=== PATIENT | male | born 1955 | race Caucasian/White ===

== ENCOUNTER 2018-06-17 08:16 | Day surgery (SDC) | payer OTHER ==
--- NOTE | 2018-06-08 03:58 | HP ---
PREOPERATIVE HISTORY AND PHYSICAL: DATE OF ADMISSION/SURGERY: 06/17/18 ATTENDING SURGEON: Dr. Elana Sears.* (DICTATED BY SEA MILLER) PROCEDURE: Left knee arthroscopy, partial meniscectomy. CHIEF COMPLAINT: Left knee pain. HISTORY OF PRESENT ILLNESS: Jeferson is a 63-year-old male who presents to the clinic for left knee pain due to osteoarthritis. He states that he continues to have pain in his left knee. He has been working on physical therapy exercises and has not noticed much of an improvement. He did get corticosteroid injection, which only helped him for about 1 to 2 months. In the past couple of months, his pain has been worsening. He is taking Advil 200 mg. He went to [place] for a second opinion and they told him to get a knee scope or a total joint. He is interested in a knee scope to clean out his knee. He denies numbness, tingling, fever, chills, chest pain, shortness of breath, and is doing well otherwise. PAST MEDICAL HISTORY: Hypertension, high cholesterol in the past, history of opioid addiction, and depression. PAST SURGICAL HISTORY: Cardiac cath. Denies complications with anesthesia. MEDICATIONS: 1. Ibuprofen 200 mg 2 to 3 tabs every 6 hours as needed for pain. 2. Subutex. ALLERGIES: MORPHINE. FAMILY HISTORY: Denies pertinent family history. SOCIAL HISTORY: He lives with his spouse. He works as a abisai. He is a former smoker, quit in 2008. He reports occasional alcohol consumption. He exercises occasionally. REVIEW OF SYSTEMS: A 14-point review of systems was reviewed with the patient. Positive for current complaint, otherwise negative. Denies fever, chills, chest pain, shortness of breath, history of bleeding disorder, history of DVT or PE. Denies history of MRSA. PHYSICAL EXAMINATION GENERAL: A 63-year-old well-developed, well-nourished male, in no acute distress. Alert and oriented x3. Appropriate mood and affect. Appropriate balance and coordination of the lower extremities. VITAL SIGNS: Height 73, weight 276, pulse 86, blood pressure 140/80, respiratory rate 20, BMI 36.4. HEENT: Normocephalic, atraumatic. PERRLA. Throat clear. NECK: Supple. PULMONARY: Lungs are clear to auscultation bilaterally. No wheezing, rhonchi, or rales. CARDIO: Regular rate and rhythm. S1, S2. No murmurs, gallops, or rubs. No edema. ABDOMEN: Positive bowel sounds. Soft, nontender. NEURO: Alert and oriented x3. Cranial nerves grossly intact. Sensation intact to light touch. MUSCULOSKELETAL: Left lower extremity: Skin is intact. No warmth or erythema. Range of motion is 0 to 120. Mild effusion. Tenderness to palpation of the medial joint line and the patellar facets. Calf soft, nontender. +5/5 strength to ankle dorsiflexion and plantarflexion. +2 PT pulse. Sensation intact to light touch distally. Stable to varus and valgus stress. DIAGNOSTIC STUDIES: MRI revealed arthritis of the medial and patellofemoral compartments and PCL insufficiency. ASSESSMENT: Left knee osteoarthritis. PLAN: Jeferson is a 63-year-old male who presents to the clinic for followup of left knee pain due to osteoarthritis. He has failed conservative measures to include physical therapy, anti-inflammatories and a steroid injection, and has therefore agreed to undergo a left knee arthroscopy with partial meniscectomy with Dr. Sears on 06/17/18. It was explained to the patient that he may have continued arthritis pain after the surgery; however, he has agreed to undergo the surgery. Risks of surgery to include injury to blood vessels, nerves, surrounding structures; bleeding; infection; stiffness; persistent pain ; risks of anesthesia; and risks of DVT or PE were discussed with the patient. He has agreed to undergo the procedure. He will follow up 10 to 14 days postop for followup and suture removal. 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 SEA MILLER [id number]/[facility] #: [id number] MTDD
[~2018-06-17 08:16] MED LIST: Buffered Lidocaine 0.9% SYRIN* 5 ML/SYR SYRINGE INTRADERM ONE; Famotidine IV* 10 MG/ML 2 ML (20 mg) IV ONE
[2018-06-17] MEDS ORDERED: ceFAZolin 1 GM ADVAN(*) 1 GM ADDV.VIAL IVPB ONE (08:17)
[2018-06-17] MEDS ORDERED: ceFAZolin 2 GM PREMIX in ORs 2 GM/50 ML BAG IVPB ONE (08:17)
[2018-06-17] MEDS ORDERED: Famotidine IV* 10 MG/ML 2 ML (20 mg) ONE (08:17)
[2018-06-17] MEDS ORDERED: Midazolam* 1 MG/ML 5 ML VIAL (5 MG) ONE (08:26)
[2018-06-17] MEDS ORDERED: Lidocaine 1% MPF wEPI 200,000* 30 ML SDV ONE (11:02)
[2018-06-17] MEDS ORDERED: Bupivacaine 0.25% SDV PF* 10 ML VIAL INJ ONE (11:02)
[2018-06-17] MEDS ORDERED: Ketorolac INJ* 30 MG/ML 1 ML VIAL ONE (11:13)
[2018-06-17] MEDS ORDERED: Propofol* 10 MG/ML 20 ML BTL IV PUSH ONE (11:13)
[2018-06-17] MEDS ORDERED: DiMENhydriNATE IV* 50 MG/ML VIAL ONE (11:13)
[2018-06-17] MEDS ORDERED: Lidocaine 2% PF * 5 ML VIAL ONE (11:13)
[2018-06-17] MEDS ORDERED: Dexamethasone IV* 4 MG/ML 1 ML (4 MG) ONE (11:13)
[2018-06-17] MEDS ORDERED: Ondansetron INJ* 2 MG/ML VIAL ONE (11:13)
[2018-06-17] MEDS ORDERED: DiMENhydriNATE IV* 50 MG/ML VIAL IV PUSH PRN (11:34)
[2018-06-17] MEDS ORDERED: Acetaminophen TAB* 325 MG PO PRN (11:34)
[2018-06-17] MEDS ORDERED: Acetaminophen TAB* 325 MG ONE (12:58)
[2018-06-17 14:20] VITALS: BP 118/79
--- NOTE | 2018-06-17 21:44 | OP ---
CC: PCP, Rey Liu MD * DATE OF OPERATION: 06/17/18 - [facility] DATE OF : 55 ATTENDING SURGEON: Elana Sears MD FRIT MIXER AND BURNER: SEA Powell. An laundry assistant was needed due to the patient' s size and body habitus. ANESTHESIOLOGIST: Dr. Ann PRE-OP DIAGNOSIS: Left knee arthritis with medial meniscus tear. POST-OP DIAGNOSIS: Left knee osteoarthritis with medial and lateral meniscus tear, chondroplasty of the patellofemoral and medial compartments, and synovectomy of the anteromedial and lateral joints. COMPLICATIONS: None. ESTIMATED BLOOD LOSS: Minimal. INDICATIONS: Jeferson Mcadams is a 63-year-old male who has persistent worsening symptoms of his knees. He had responded to injection. He has tried physical therapy and exercises and has continued to struggle. We did talk about how he does have some arthritis changes that may be better rectified with a total joint, but he does have some catching and locking symptoms and synovitic symptoms and wanted to see if arthroplasty would help. Risk and benefits were discussed at length included, but not limited to bleeding, infection, damage to nerves, vessels, surrounding structures, wound nonhealing, persistent pain, need for surgery, scarring stiffness, incomplete release of symptoms, risks of anesthesia, risk of DVT. DESCRIPTION OF PROCEDURE: The patient was greeted in the preoperative area by the attending surgeon. The correct extremity was marked, consent was confirmed. The patient was brought back to the operating suite where he was placed in a supine position on the operating room table and underwent general anesthesia, LMA intubation after which an unsterile tourniquet was placed high in the proximal thigh, the lateral post was positioned. Left leg was then prepped and draped in the usual sterile fashion beginning with chlorhexidine soap, scrub, and alcohol wipe, and a final prep with ChloraPrep. After appropriate surgical pause indicating site, side, procedure, and administration of antibiotics; the knee was intra-articularly injected with 1% lidocaine with epi. Anterolateral portal was made sharply with an 11 blade. Scope was introduced into the joint. Joint was examined. There was abundant synovitis apparent. Anteromedial portal was then made in an outside-end fashion with an 18- gauge and localized. The synovitis was then debrided back using the shaver as well as the electrocautery device. The ACL and PCL were intact. Medial compartment was examined, there was areas of grade 3 and 4 changes to the meniscus. There is an unstable meniscus tear, which was debrided back using the shaver. The advanced stage of the medial femoral compartment were identified. The knee was then placed in a [id number] position. Lateral meniscus was identified and there was clear bucket-handle type tear. This was debrided back using the sabine and the biters. The lateral femoral condyle had grade 0 to 1 changes. The lateral plateau had grade 2 changes with unstable flaps that were debrided back, chondroplasty was done. The knee was then placed in extension. The patient is unable to fully extend and rested at about 8 degrees of flexion. The synovectomy was done using a shaver and the electrocautery device, which extended all the way to the gutters medially and laterally. Once this was done and hemostasis was obtained , attention was directed to the patellofemoral joint. There were grade 2 and 3 changes at the patellofemoral joint. This was debrided back using the shaver. Knee was thoroughly lavaged and all loose debris was removed. Final images were obtained. The portals were closed with 3-0 nylon, sterile dressings were applied. He was awoken from anesthesia. The knee was intra-articularly injected with 0.25% bupivacaine. He was awoken from anesthesia and transferred to PACU in stable condition. POSTOPERATIVE PLAN: He will be weightbearing as tolerated. Crutches for 3 to 5 days. He will be discharged on pain medications including Toradol because he is on chronic pain medications. I will see the patient back in 10 to 14 days. [id number]/[facility] #: [id number] [facility]
== END 2018-06-17 14:39 | disposition home or self-care (01) ==
LOC: OR 08:16
PROVIDERS: ATTEND Orthopaedic Surgery
DX: M17.12 Unilateral primary osteoarthritis, left knee (principal); M23.201 Derangement of unspecified lateral meniscus due to old tear or injury, left knee; M23.204 Derangement of unspecified medial meniscus due to old tear or injury, left knee; I10 Essential (primary) hypertension; F11.21 Opioid dependence, in remission; Z85.828 Personal history of other malignant neoplasm of skin; Z87.891 Personal history of nicotine dependence; E66.01 Morbid (severe) obesity due to excess calories
CPT/HCPCS: A9270-GY; J0690; J1100; J1240; J1885; J2001; J2250; J2405; J2704; J3490

== ENCOUNTER → 2018-11-27 05:54 | Day surgery (SDC) | payer OTHER ==
[~2018-11-27 05:54] MED LIST changes: +Acetaminophen TAB* 325 MG PO PRN; -Buffered Lidocaine 0.9% SYRIN* 5 ML/SYR SYRINGE INTRADERM ONE; +Buffered Lidocaine 1% SYRIN* 1 ML/SYRINGE INTRADERM ONE; +Dexamethasone IV* 4 MG/ML 1 ML (4 MG) IV SLOW PU ONE; +Dexamethasone IV* 4 MG/ML 1 ML (4 MG) ONE; -Famotidine IV* 10 MG/ML 2 ML (20 mg) IV ONE; +HYDROcodone/ACETAMIN 5-325 MG* 1 TAB PO PRN; +Lactated Ringers 1000 ML Bag* 1,000 ML IV SCH; +Lidocaine 2% PF * 5 ML VIAL ONE; +Midazolam* 1 MG/ML 2 ML VIAL (2 MG) ONE; +Naloxone* 0.4 MG/ML 1 ML VIAL IV PRN; +Ondansetron INJ* 2 MG/ML VIAL IV PRN; +Propofol* 10 MG/ML 20 ML BTL ONE; +fentaNYL* 50 MCG/ML 2 ML VIAL (100 MCG VIAL) IV PRN
[2018-11-27 10:03] VITALS: BP 140/91
--- NOTE | 2018-11-27 11:21 | PRO ---
CC: Rey Liu MD * EGD AND COLONOSCOPY REPORT: DATE OF PROCEDURE: 11/27/18 - ENDO PRIMARY CARE PHYSICIAN: Rey Liu MD INDICATIONS FOR PROCEDURE: Change in bowel habits, GERD. PROCEDURE PERFORMED: Complete esophagogastroduodenoscopy and complete colonoscopy to the cecum with biopsies. MEDICATIONS GIVEN: Please see anesthesia record. DESCRIPTION OF PROCEDURE: After the EGD and colonoscopy procedure including the risks, benefits, and alternatives with the risks not limited to perforation , surgery, missed lesions, and/or were explained to the patient, written and informed consent was obtained. IV sedation medication was given by the anesthesia service and a bite block was placed between the teeth. The adult Olympus gastroscope was inserted into the patient's oropharynx into the tubular esophagus. The tubular esophagus had mild GE junction irregularity, less than 1 cm, it was biopsied for reflux disease. The scope was advanced through a patent lower esophageal sphincter into the stomach. The stomach antrum had mild antral gastritis, this was biopsied for CLOtesting. On retroflexion, the views were relatively normal. The scope was advanced through a widely patent pylorus into the duodenal bulb, C-loop, and distal duodenum. Biopsies were taken to rule out villous blunting, but overall the appearance of the duodenum appeared normal. The GE junction was at 40 cm. The scope was removed from the patient, he tolerated the procedure well. He was given additional IV sedation by the anesthesia service. A rectal exam was then performed. The rectal exam was unremarkable. The adult Olympus colonoscope was then inserted into the patient's rectum and advanced very carefully throughout the entirety of the colon into the cecal base. The cecal base was carefully inspected and normal in appearance. The terminal ileal valve was identified and normal in appearance. The preparation was good. Over the next 10 minutes, the scope was carefully withdrawn inspecting the mucosa. No polyps or lesions were identified. The colon was quite redundant and cavernous, but otherwise normal in appearance. I returned to the rectum. Direct views were normal. On retroflexion, grade 1 internal hemorrhoids were appreciated. Biopsies were taken for microscopic colitis throughout given his change in bowel habits. The scope was then removed from the patient. He tolerated the procedure well. He returned to the recovery room in stable condition. IMPRESSION: 1. Complete esophagogastroduodenoscopy with biopsies. 2. Mild reflux at the GE junction, biopsied. 3. Mild antral gastritis. 4. Normal-appearing duodenum. 5. Complete colonoscopy to the cecum. 6. Long redundant colon that is cavernous, but grossly normal. 7. Random biopsies taken for change of bowel habits. RECOMMENDATIONS: Suspect at this point this constellation of symptoms is more related to opiate-induced constipation. We will start the patient on Amitiza 24 mcg b.i.d. He can peanut picker samples in the office. He can then follow up with Jennie Lynn in 3 to 4 weeks for further management. [id number]/[facility] #: [id number] [facility]
== END | disposition home or self-care (01) ==
LOC: ENDO 05:54
PROVIDERS: ATTEND Internal Medicine Gastroenterology
DX: K21.9 Gastro-esophageal reflux disease without esophagitis (principal); K59.00 Constipation, unspecified; R19.4 Change in bowel habit; R19.7 Diarrhea, unspecified; K92.1 Melena; K63.89 Other specified diseases of intestine; K29.70 Gastritis, unspecified, without bleeding; K64.0 First degree hemorrhoids; I10 Essential (primary) hypertension; F32.9 Major depressive disorder, single episode, unspecified; Z88.5 Allergy status to narcotic agent; Z87.891 Personal history of nicotine dependence; Z79.899 Other long term (current) drug therapy
CPT/HCPCS: 87077; 88305; J1100; J2250; J2704

== ENCOUNTER 2020-07-21 12:56 | Observation (INO) ==
[2020-07-21 14:00] LABS: ABS Eosinophils 0.1 10^3/ul (0-0.6); ABS Lymphocytes 0.8 10^3/ul (1.0-4.8); ABS Monocytes 0.4 10^3/ul (0-0.8); ABS Neutrophils 4.2 10^3/ul (1.5-7.7); Eosinophil % 1.7 %; Hematocrit 41 % (42-52); Lymphocyte % 14.7 %; Mean Corpuscular HGB Conc 34 g/dL (31-36); Mean Corpuscular Hemoglobin 29 pg (27-31); Mean Corpuscular Volume 84 fL (80-94); Mean Platelet Volume 9.6 fL (7.4-10.4); Nucleated Red Blood Cells % 0.1; Platelet Count 127 10^3/uL (150-450); Red Blood Count 4.85 10^6 /uL (4.18-5.48); Red Cell Distribution Width 14 % (10-15); White Blood Count 5.6 10^3/uL (3.5-10.8)
[2020-07-21 14:32] LABS: Alcohol, S < 10 mg/dL (<10); Ammonia 50 mcmol/L (16-53)
[2020-07-21 14:34] LABS: ALT 43 U/L (7-52); AST 44 U/L (13-39); Albumin 4.2 g/dL (3.2-5.2); Albumin/Globulin Ratio 1.3 (1-3); Alkaline Phosphatase 82 U/L (34-104); Anion Gap 7 mmol/L (2-11); BUN/Creatinine Ratio 9.8 (8-20); Blood Urea Nitrogen 12 mg/dL (6-24); CO2 Carbon Dioxide 29 mmol/L (22-32); Calcium 9.3 mg/dL (8.6-10.3); Chloride 99 mmol/L (101-111); Creatine Kinase 53 U/L (10-223); EGFR African American 71.5 (>60); EGFR Non-African American 59.1 (>60); Globulin 3.3 g/dL (2-4); Glucose 143 mg/dL (70-100); Potassium 4.1 mmol/L (3.5-5.0); Sodium 135 mmol/L (135-145); Total Protein 7.5 g/dL (6.4-8.9); Troponin I 0.01 ng/mL (<0.03)
[2020-07-21 14:37] LABS: BNP 26 pg/mL (<=100)
[2020-07-21 14:47] LABS: TSH Ultra Thyroid Stim Horm 2.83 mcIU/mL (0.34-5.60)
[2020-07-21] MEDS ORDERED: NS 0.9% 1000 ml BAG 1,000 ML IV SCH (16:00)
[2020-07-21] MEDS ORDERED: Perflutren Lipid Microsphere 3 ML VIAL ONE (16:36)
[2020-07-22 02:03] LABS: Urine Appearance Clear; Urine Bacteria Absent (Absent); Urine Bilirubin Negative (Negative); Urine Blood Negative (Negative); Urine Color Yellow; Urine Glucose Negative (Negative); Urine Ketones Negative (Negative); Urine Nitrite Negative (Negative); Urine Protein Negative (Negative); Urine Red Blood Cell Trace(0-2/hpf) (Absent); Urine Specific Gravity 1.009 (1.010-1.030); Urine Urobilinogen Negative (Negative); Urine White Blood Cell Trace(0-5/hpf) (Absent)
[2020-07-22] MEDS: Influenza VAC *QUAD* 2020-21* 0.5 ML SYRINGE IM ONE ×2 (07:50→07:54)
[2020-07-22 07:56] VITALS: BP 131/76
[2020-07-22] MEDS ORDERED: Buprenorp/Nalox 8-2 MG SL TAB SL SCH (09:00)
== END 2020-07-22 10:35 | disposition home or self-care (01) ==
LOC: ED 12:56 → MEDTELE 12:56
PROVIDERS: ADMIT Student in an Organized Health Care Education/Training Program; ATTEND Student in an Organized Health Care Education/Training Program

== ENCOUNTER 2023-07-14 12:57 | Observation (INO) ==
[2023-07-14 13:35] LABS: ABS Eosinophils 0.2 10^3/uL (0.0-0.5); ABS Monocytes 0.4 10^3/uL (0.0-1.1); ABS Neutrophils 2.7 10^3/uL (1.5-7.6); Eosinophil % 4.4 %; Hematocrit 42.2 % (38-53); Hemoglobin 14.4 g/dL (13.2-16.3); Lymphocyte % 37.1 %; Mean Corpuscular Hemoglobin 29.7 pg (27-33); Mean Corpuscular Hgb Conc 34.1 g/dL (31-36); Mean Corpuscular Volume 87.2 fL (80-97); Mean Platelet Volume 9.5 fL (7.5-11.2); Nucleated Red Blood Cells % 0.1 /100 WBC (0.0-0.4); Platelet Count 116 10^3/uL (150-450); Red Blood Count 4.84 10^6/uL (4.06-5.63); Red Cell Distribution Width 13.4 % (12-17); White Blood Count 5.5 10^3/uL (3.6-10.2)
[2023-07-14 13:50] LABS: INR 1.05 (0.83-1.13)
[2023-07-14 14:04] LABS: Albumin 4.4 g/dL (3.2-5.2); CO2 Carbon Dioxide 27 mmol/L (22-32); Calcium 8.9 mg/dL (8.6-10.3); Chloride 100 mmol/L (101-111); Sodium 132 mmol/L (135-145)
[2023-07-14 14:10] LABS: ALT 89 U/L (7-52); Albumin/Globulin Ratio 1.4 (1-3); Alkaline Phosphatase 61 U/L (35-149); Blood Urea Nitrogen 21 mg/dL (6-24); Creatinine, Serum 1.12 mg/dL (0.67-1.17); Globulin 3.2 g/dL (2-4); Glucose 126 mg/dL (70-100); Total Protein 7.6 g/dL (6.4-8.9); eGFR CKD-EPI 71.6 (>60)
[2023-07-14 14:16] LABS: High Sens Troponin Baseline < 3 pg/mL (<20)
[2023-07-14 14:17] LABS: Anion Gap 5 mmol/L (2-16)
[2023-07-14 15:36] LABS: Potassium Redraw 4.5 mmol/L (3.5-5.0)
[2023-07-14] MEDS: Buprenorp/Nalox 8-2 MG SL TAB SL SCH (17:12)
[2023-07-14 17:21] LABS: Magnesium 2.3 mg/dL (1.9-2.7)
[2023-07-14 17:27] LABS: HDL Cholesterol 42.5 mg/dL
[2023-07-14 18:37] LABS: TSH Ultra Thyroid Stim Horm 2.35 mcIU/mL (0.34-5.60)
[2023-07-14] MEDS: Enoxaparin 40 MG/0.4 ML SYR SUBCUT SCH (22:10)
[2023-07-14 23:12] LABS: Hepatitis C Antibody Negative (Negative)
[2023-07-15 05:05] LABS: ABS Eosinophils 0.2 10^3/uL (0.0-0.5); ABS Lymphocytes 2.1 10^3/uL (1.0-4.8); ABS Monocytes 0.5 10^3/uL (0.0-1.1); ABS Neutrophils 2.8 10^3/uL (1.5-7.6); ABS Nucleated RBC 0.01 10^3/ul; Eosinophil % 4.2 %; Hematocrit 39.3 % (38-53); Hemoglobin 13.5 g/dL (13.2-16.3); Lymphocyte % 37.7 %; Mean Corpuscular Hemoglobin 29.9 pg (27-33); Mean Corpuscular Hgb Conc 34.5 g/dL (31-36); Mean Corpuscular Volume 86.5 fL (80-97); Mean Platelet Volume 9.2 fL (7.5-11.2); Nucleated Red Blood Cells % 0.1 /100 WBC (0.0-0.4); Platelet Count 118 10^3/uL (150-450); Red Blood Count 4.54 10^6/uL (4.06-5.63); Red Cell Distribution Width 13.3 % (12-17); White Blood Count 5.7 10^3/uL (3.6-10.2)
[2023-07-15 05:23] LABS: ALT 80 U/L (7-52); Albumin/Globulin Ratio 1.3 (1-3); Alkaline Phosphatase 57 U/L (35-149); Blood Urea Nitrogen 19 mg/dL (6-24); CO2 Carbon Dioxide 27 mmol/L (22-32); Chloride 103 mmol/L (101-111); Creatinine, Serum 1.05 mg/dL (0.67-1.17); Glucose 92 mg/dL (70-100); Sodium 135 mmol/L (135-145); eGFR CKD-EPI 77.3 (>60)
[2023-07-15 05:25] LABS: Anion Gap 5 mmol/L (2-16)
[2023-07-15] MEDS: Buprenorp/Nalox 8-2 MG SL TAB SL SCH (08:34)
[2023-07-15 09:20] LABS: Magnesium 2.3 mg/dL (1.9-2.7)
[2023-07-15] MEDS ORDERED: Senna TAB 8.6 mg TAB PO PRN (11:54)
[2023-07-15 12:39] LABS: Potassium, Whole Blood 4.6 mmol/L (3.4-4.5)
[2023-07-15 18:04] VITALS: BP 128/98
[2023-07-15] MEDS: Enoxaparin 40 MG/0.4 ML SYR SUBCUT SCH (18:09)
== END 2023-07-15 18:20 | disposition short-term general hospital (02) ==
LOC: ED 12:57 → EDHOLD 12:57 → SUATTDRO 16:05 → EDHOLD 07-15 18:01
PROVIDERS: ADMIT Internal Medicine; ATTEND Internal Medicine

== ENCOUNTER 2024-11-19 04:20 | Observation (INO) ==
[2024-11-19 04:51] LABS: ABS Lymphocytes 0.4 10^3/uL (1.0-4.8); ABS Monocytes 0.4 10^3/uL (0.0-1.1); ABS Neutrophils 3.4 10^3/uL (1.5-7.6); ABS Nucleated RBC 0.01 10^3/ul; Eosinophil % 0.2 %; Hematocrit 39.8 % (38-53); Lymphocyte % 9.8 %; Mean Corpuscular Volume 85.7 fL (80-97); Mean Platelet Volume 8.7 fL (7.5-11.2); Nucleated Red Blood Cells % 0.1 %/100WBC (0.0-0.8); Platelet Count 105 10^3/uL (150-450); Red Blood Count 4.65 10^6/uL (4.06-5.63); White Blood Count 4.4 10^3/uL (3.6-10.2)
[2024-11-19] MEDS: Lactated Ringers 1000 ml BAG 1,000 ML IV ONE (04:53)
[2024-11-19] MEDS: Ondansetron 4 mg VIAL 2 MG/ML 2 ml VIAL IV ONE (04:53)
[2024-11-19 05:00] LABS: Venous Bicarbonate HCO3 28.1 mmol/L (24-28)
[2024-11-19 05:02] LABS: Activated Partial Thrombo Time 29.7 seconds (26.0-38.0); INR 1.26 (0.85-1.14)
[2024-11-19 05:55] LABS: Albumin/Globulin Ratio 1.3 (1-3); C Reactive Protein 43.54 mg/L (<8.01); Calcium 8.6 mg/dL (8.6-10.3); Creatinine, Serum 1.15 mg/dL (0.67-1.17); Potassium 3.9 mmol/L (3.5-5.0); eGFR CKD-EPI 68.9 (>60)
[2024-11-19 06:32] LABS: High Sensitivity Troponin 1 Hr 5 pg/mL (<20)
[2024-11-19] MEDS: Dexamethasone IV 4 MG/ML VIAL 1 ml VIAL IV SLOW PU ONE (06:44)
[2024-11-19] MEDS ORDERED: Senna TAB 8.6 mg TAB PO PRN ×2 (08:09→09:40)
[2024-11-19] MEDS ORDERED: Polyethylene Glycol 3350 17 GM PACKET PO PRN ×2 (08:09→09:40)
[2024-11-19 09:17] LABS: Urine Appearance Clear; Urine Bilirubin Negative (Negative); Urine Blood Negative (Negative); Urine Color Light-Yellow; Urine Glucose Negative (Negative); Urine Ketones 1+ (Negative); Urine Nitrite Negative (Negative); Urine Protein Negative (Negative); Urine Specific Gravity 1.009 (1.002-1.030); Urine Urobilinogen Negative (Negative); Urine pH 6.5 (5.0-8.0)
[2024-11-19] MEDS ORDERED: Magnesium Hydroxide LIQ 30 ML UDC PO PRN (09:40)
[2024-11-19] MEDS ORDERED: Dextrose 50% Syringe 50 ml 25 GM/50 ML SYRINGE IV PUSH PRN (10:19)
[2024-11-19] MEDS: Buprenorp/Nalox 8-2 MG SL TAB SL SCH (10:39)
[2024-11-19] MEDS: Magnesium Hydroxide LIQ 30 ML UDC PO SCH (10:39)
[2024-11-19] MEDS: Enoxaparin 40 MG/0.4 ML SYR SUBCUT SCH (10:41)
[2024-11-19 11:14] LABS: INR 1.23 (0.85-1.14)
[2024-11-19] MEDS: Remdesivir 100 mg Vial 200 MG in NS 0.9% 250 ml 210 ML IV ONE (11:21)
[2024-11-20 06:53] LABS: ABS Lymphocytes 0.9 10^3/uL (1.0-4.8); ABS Monocytes 0.7 10^3/uL (0.0-1.1); ABS Neutrophils 7.5 10^3/uL (1.5-7.6); ABS Nucleated RBC 0.01 10^3/ul; Hematocrit 37.9 % (38-53); Hemoglobin 13.4 g/dL (13.2-16.3); Lymphocyte % 9.4 %; Mean Corpuscular Hemoglobin 29.9 pg (27-33); Mean Corpuscular Hgb Conc 35.2 g/dL (31-36); Mean Corpuscular Volume 84.8 fL (80-97); Nucleated Red Blood Cells % 0.1 %/100WBC (0.0-0.8); Platelet Count 114 10^3/uL (150-450); Red Blood Count 4.47 10^6/uL (4.06-5.63); Red Cell Distribution Width 12.9 % (12-17); White Blood Count 9.1 10^3/uL (3.6-10.2)
[2024-11-20 06:57] LABS: INR 1.2 (0.85-1.14)
[2024-11-20 07:24] LABS: Albumin 3.6 g/dL (3.5-5.7); Albumin/Globulin Ratio 1.3 (1-3); Calcium 8.7 mg/dL (8.6-10.3); Creatinine, Serum 0.9 mg/dL (0.67-1.17); Globulin 2.7 g/dL (2-4); Potassium 4.3 mmol/L (3.5-5.0); Total Bilirubin 0.6 mg/dL (0.2-1.0); Total Protein 6.3 g/dL (6.4-8.9); eGFR CKD-EPI 92.5 (>60)
[2024-11-20] MEDS: Remdesivir 100 mg Vial 100 MG in NS 0.9% 250 ml 230 ML IV SCH (09:05)
[2024-11-20 11:24] VITALS: BP 123/80
== END 2024-11-20 13:33 | disposition home or self-care (01) ==
LOC: EDHOLD 04:20 → ED 04:20 → MED 12:13
PROVIDERS: ADMIT Internal Medicine; ATTEND Internal Medicine